=== PATIENT | female | born 1960 | race African-American/Black ===

== ENCOUNTER 2022-07-31 16:43 | Inpatient (IN) | payer OTHER, SELFPAY ==
[~2022-07-31 16:43] MED LIST: Iopamidol-370 76% 500 ML 1 ML ONE
[2022-07-31 17:50] VITALS: BMI 33.8
[2022-07-31 19:24] LABS: #Eosinphils 0.1 thou/uL (0.0-0.7); #Lymphocytes 2.6 thou/uL (1.20-3.40); #Monocytes 0.5 thou/uL (0.11-0.59); #Neutrophils 2.8 thou/uL (1.40-6.50); %Basophils 0.2 % (0.0-1.0); %Eosinophils 1.3 % (0.0-10.0); %Lymphocytes 43.7 % (21.0-51.0); %Monocytes 8.9 % (0.0-10.0); %Neutrophils 45.9 % (42.0-75.0); Hemoglobin 15.1 g/dL (12.0-16.0); Mean Corpuscular HGB CONC 32.2 g/dL (32.0-36.0); Mean Corpuscular Hemoglobin 30.4 pg (27.0-31.0); Mean Corpuscular Volume 94.5 fL (78.0-98.0); Mean Platelet Volume 7.5 fL (7.4-10.4); Platelet Count 205 thou/uL (130-400); RBC Distribution Width 12.4 % (11.5-14.5); Red Blood Cell (RBC) Count 4.97 mill/uL (4.20-5.40)
[2022-07-31 19:37] LABS: Hemoglobin A1c 6.1 % (4.0-6.0)
[2022-07-31 19:55] LABS: SARS-CoV-2 NAA Rapid Test Not Detected (NotDetected)
[2022-07-31 19:55] LABS: ALT (SGPT) 19 U/L (8-55); AST (SGOT) 13 U/L (5-34); Albumin 3.9 g/dL (3.5-5.0); Alkaline Phosphatase 65 U/L (40-110); Anion Gap 12 mmol/L (10-20); BUN (Urea Nitrogen) 10 mg/dL (9.8-20.1); Bilirubin, Total 0.6 mg/dL (0.2-1.2); Calc. Creatinine Clearance 85 mL/min (70-130); Calcium 9.5 mg/dL (7.8-10.44); Carbon Dioxide 21 mmol/L (22-29); Chloride 110 mmol/L (98-107); Estimated GFR 65; Glucose 87 mg/dL (70-105); Protein, Total 6.9 g/dL (6.0-8.3); Sodium 139 mmol/L (136-145)
[2022-07-31] MEDS ORDERED: Ondansetron PF 4 MG/2 ML Vial IVP PRN (20:04)
[2022-07-31] MEDS ORDERED: Fentanyl 100 MCG/2 ML VIAL SLOW IVP PRN (20:04)
[2022-07-31] MEDS ORDERED: Acetaminophen 650 MG Suppository PR PRN (20:05)
[2022-07-31] MEDS ORDERED: Dextrose 5% in Water 1,000 ML IV PRN (20:15)
[2022-07-31] MEDS ORDERED: Insulin Regular 300 UNITS/3 ML VIAL SC PRN (20:15)
[2022-07-31] MEDS ORDERED: Dextrose 50% Abboject 50 ML SYRINGE IVP PRN (20:15)
[2022-07-31] MEDS ORDERED: Piperacillin/Tazobactam 3.375 GM in Sodium Chloride 0.9% 100 ML IVPB SCH ×2 (21:15→23:59)
[2022-07-31] MEDS ORDERED: Cefepime 2 GM in Sodium Chloride 0.9% 100 ML IVPB SCH (22:00)
[2022-07-31] MEDS: Dextrose 5 % And 0.9 % NaCl 1,000 ML IV SCH (22:02)
[2022-07-31] MEDS ORDERED: Ampicillin/Sulbactam 3 GM in Sodium Chloride 0.9% 100 ML IVPB SCH (23:59)
[2022-08-01] MEDS ORDERED: Piperacillin/Tazobactam 3.375 GM in Sodium Chloride 0.9% 100 ML IVPB SCH (04:00)
[2022-08-01] MEDS: Dextrose 5 % And 0.9 % NaCl 1,000 ML IV SCH ×3 (04:49→21:39)
[2022-08-01 06:40] LABS: Bacteria/HPF None Seen HPF (None Seen); Bilirubin Negative (Negative); Blood, Urine Negative (Negative); Clarity Clear (Clear); Glucose, Urine (Dipstick) 50 mg/dL (Negative); Ketone, Urine Negative (Negative); Leukocyte Negative Leu/uL (Negative); Nitrite Negative (Negative); Protein, Urine (Dipstick) Negative (Neg-Trace); RBC/HPF None Seen HPF (0-3); Squamous Epithelial 0-3 HPF (0-3); Urobilinogen Normal mg/dL (Less than 2); WBC/HPF 0-3 HPF (0-3); pH, Urine 5.5 (5.0-9.0)
[2022-08-01] MEDS ORDERED: Cefepime 2 GM in Sodium Chloride 0.9% 100 ML IVPB SCH (08:00)
[2022-08-01] MEDS ORDERED: Ketorolac Tromethamine 30 MG/ML VIAL IM PRN (09:49)
[2022-08-01] MEDS: Polyethylene Glycol 3350 17 GM Packet PO SCH ×2 (10:00→21:39)
[2022-08-01] MEDS ORDERED: GoLYTELY 4,000 ml Bottle PO SCH (19:45)
[2022-08-02] MEDS: Dextrose 5 % And 0.9 % NaCl 1,000 ML IV SCH ×3 (06:11→21:20)
[2022-08-02] MEDS: Polyethylene Glycol 3350 17 GM Packet PO SCH ×2 (07:56→21:21)
[2022-08-03] MEDS: Dextrose 5 % And 0.9 % NaCl 1,000 ML IV SCH ×2 (05:51→11:49)
[2022-08-03] MEDS ORDERED: Metoclopramide HCl 10 MG/2 ML VIAL IVP STA (06:45)
[2022-08-03] MEDS: Metoclopramide HCl 10 MG/2 ML VIAL IVP SCH ×2 (06:54→12:49)
[2022-08-03] MEDS: Polyethylene Glycol 3350 17 GM Packet PO SCH (08:16)
[2022-08-03 08:27] VITALS: BP 145/82; TEMP 97.9
== END 2022-08-03 17:35 | disposition home or self-care (01) | DRG 392 ==
LOC: T4-A 16:59 → OBSVTOIN 18:46
PROVIDERS: ADMIT Specialist; ATTEND Specialist
DX: K59.00 Constipation, unspecified (principal); Z20.822 Contact with and (suspected) exposure to COVID-19; Z98.51 Tubal ligation status; Z90.710 Acquired absence of both cervix and uterus; Z79.899 Other long term (current) drug therapy; Z79.82 Long term (current) use of aspirin
CPT/HCPCS: 36415; 36416; 74177; 80053; 81001; 83036; 85025; 87040; 87086; J0692; J1885; J2543; J2765; J3490; J7042; Q9967; U0002

== ENCOUNTER 2024-06-04 15:38 | Outpatient (CLI) | payer BC ==
[2024-06-04 16:54] LABS: Hematocrit 46.8 % (34.9-44.5); Hemoglobin 15.4 g/dL (12.0-15.5); Mean Corpuscular HGB CONC 32.9 g/dL (32.0-36.0); Mean Corpuscular Hemoglobin 29.7 pg (27.0-33.0); Mean Corpuscular Volume 90.3 fL (81.6-98.3); Mean Platelet Volume 9.6 fL (7.4-10.4); Platelet Count 251 10x3/uL (150-450); RBC Distribution Width 12.8 % (11.5-14.5); Red Blood Cell (RBC) Count 5.18 10x6/uL (3.90-5.03); White Blood Cell (WBC) Count 4.7 10x3/uL (3.5-10.5)
[2024-06-04 17:11] LABS: Anion Gap 12 mmol/L (10-20); BUN (Urea Nitrogen) 10 mg/dL (9.8-20.1); Calc. Creatinine Clearance 0 mL/min (70-130); Calcium 9.9 mg/dL (7.8-10.44); Carbon Dioxide 26 mmol/L (23-31); Chloride 109 mmol/L (98-107); Estimated GFR 60; Glucose 84 mg/dL (80-115); Potassium 3.9 mmol/L (3.5-5.1); Sodium 143 mmol/L (136-145)
== END 2024-06-04 15:39 | disposition home or self-care (01) ==
LOC: LABBT 15:38
PROVIDERS: ATTEND Orthopaedic Surgery
DX: Z01.818 Encounter for other preprocedural examination (principal); S83.221A Peripheral tear of medial meniscus, current injury, right knee, initial encounter
CPT/HCPCS: 80048; 85027; 93005; 93010

== ENCOUNTER 2024-06-10 05:58 | Day surgery (SDC) | payer BC ==
[2024-06-04 16:18] VITALS: BMI 31.6
[2024-06-10] MEDS ORDERED: Ketorolac Tromethamine 30 MG (1 mL) VIAL ONE ×2 (06:12→07:10)
[2024-06-10] MEDS ORDERED: fentaNYL PF 100 MCG/2 ML SYRINGE ONE (07:10)
[2024-06-10] MEDS ORDERED: Ondansetron PF 4 MG/2 ML Vial ONE (07:10)
[2024-06-10] MEDS ORDERED: PROPOFOL 20 ML ONE (07:10)
[2024-06-10] MEDS ORDERED: Midazolam HCl 2 mg/2 ml Vial ONE (07:10)
[2024-06-10] MEDS ORDERED: Lidocaine 1% PF 5 ML VIAL ONE (07:10)
[2024-06-10] MEDS ORDERED: Dexamethasone 4 mg/ml Vial ONE (07:10)
[2024-06-10] MEDS ORDERED: CEFAZOLIN 2 GM VIAL ONE (07:16)
[2024-06-10] MEDS ORDERED: Sodium Chloride 0.9% 100 ML ONE (07:16)
[2024-06-10] MEDS ORDERED: EPINEPHrine 1 MG/ML VIAL ONE (07:20)
[2024-06-10] MEDS ORDERED: Bupivacaine PF 0.5% 30 ML VIAL ONE (07:20)
[2024-06-10] MEDS ORDERED: fentaNYL 50 mcg/mL 1 mL Vial ONE ×4 (08:47→10:17)
== END 2024-06-10 12:53 | disposition home or self-care (01) ==
LOC: SDC 05:58
PROVIDERS: ATTEND Orthopaedic Surgery
PROC: 0SQC4ZZ Repair Right Knee Joint, Percutaneous Endoscopic Approach (ICD-10-PCS; principal; 2024-06-10)
DX: S83.221A Peripheral tear of medial meniscus, current injury, right knee, initial encounter (principal); M17.11 Unilateral primary osteoarthritis, right knee; G43.909 Migraine, unspecified, not intractable, without status migrainosus; Z79.899 Other long term (current) drug therapy; Z88.8 Allergy status to other drugs, medicaments and biological substances; X58.XXXA Exposure to other specified factors, initial encounter
CPT/HCPCS: C1713; J0171; J0665; J1100; J1885; J2250; J2405; J2704; J3010

== ENCOUNTER 2024-10-11 10:46 | Emergency (ER) | payer BC | END 2024-10-11 12:45 | disposition home or self-care (01) | LOC: ERS 10:46 | DX: J18.9 Pneumonia, unspecified organism (principal) | CPT/HCPCS: 71045; 87081; 87428; 87430 ==

== ENCOUNTER 2024-11-18 10:20 | Emergency (ER) | payer BC ==
[2024-11-18 13:10] LABS: #Basophils 0.03 10x3/uL (0.0-0.2); %Basophils 0.4 % (0.0-1.0); %Eosinophils 2.2 % (0.0-10.0); %Lymphocytes 27.8 % (21.0-51.0); %Monocytes 12.5 % (0.0-10.0); %Neutrophils 56.8 % (42.0-75.0); Hematocrit 48.3 % (36.0-47.0); Hemoglobin 15.6 g/dL (12.0-16.0); Mean Corpuscular HGB CONC 32.3 g/dL (32.0-36.0); Mean Corpuscular Hemoglobin 29.5 pg (27.0-31.0); Mean Corpuscular Volume 91.3 fL (78.0-98.0); Mean Platelet Volume 9.5 fL (7.4-10.4); Platelet Count 231 10x3/uL (130-400); Red Blood Cell (RBC) Count 5.29 mill/uL (4.20-5.40)
[2024-11-18 13:29] LABS: ALT (SGPT) 14 U/L (8-55); AST (SGOT) 12 U/L (5-34); Albumin 3.6 g/dL (3.4-4.8); Alkaline Phosphatase 96 U/L (40-110); Anion Gap 12 mmol/L (10-20); BUN (Urea Nitrogen) 9 mg/dL (9.8-20.1); Bilirubin, Total 0.4 mg/dL (0.2-1.2); Calc. Creatinine Clearance 0 mL/min (70-130); Calcium 9.8 mg/dL (7.8-10.44); Carbon Dioxide 24 mmol/L (23-31); Chloride 108 mmol/L (98-107); Estimated GFR 80; Globulin 4.2 g/dL (2.4-3.5); Glucose 80 mg/dL (80-115); Potassium 4.4 mmol/L (3.5-5.1); Protein, Total 7.8 g/dL (5.8-8.1); Sodium 140 mmol/L (136-145)
[2024-11-18] MEDS ORDERED: Iopamidol-370 76% 500 ML MDV (1 ML CHARGE) ONE (15:19)
== END 2024-11-18 14:53 | disposition home or self-care (01) ==
LOC: ERS 10:20
DX: B34.9 Viral infection, unspecified (principal)
CPT/HCPCS: 36415; 71046; 71260; 80053; 85025; 87428